=== PATIENT | female | born 1975 | race Caucasian/White ===

== ENCOUNTER 2017-12-30 20:31 | Emergency (ER) | payer OTHER ==
[~2017-12-30] VITALS: Ht 160 cm; Wt 74.8 kg
[2017-12-30 22:17] VITALS: Ht 160 cm; Wt 74.8 kg
[2017-12-31 00:35] VITALS: BP 132/79
== END 2017-12-31 00:35 | disposition home or self-care (01) ==
LOC: ED 20:31
DX: M79.672 Pain in left foot (principal); M72.2 Plantar fascial fibromatosis